=== PATIENT | male | born 1965 | race Hispanic/Latino ===

== ENCOUNTER 2020-07-03 13:59 | Inpatient (IN) | payer MEDICARE ==
[~2020-07-03] VITALS: Ht 180.3 cm; Wt 82.3 kg
[2020-07-03] MEDS ORDERED: SODIUM CHLORIDE 0.9% 1000ML 1,000 ML IV STA (14:25)
[2020-07-03] MEDS ORDERED: PANTOPRAZOLE 40 MG 10ML VIAL IV ONE (14:25)
[2020-07-03] MEDS ORDERED: ONDANSETRON HCL INJ 2MG/ML 2ML 2 MG/ML VIAL IV ONE (14:25)
[2020-07-03 14:47] LABS: BASOPHILS % 0.3 % (0.0-1.0); EOSINOPHILS # (AUTO) 0.2 (0.0-0.4); EOSINOPHILS % 1.3 % (0.0-6.0); HEMATOCRIT 65.9 % (38.2-49.6); HEMOGLOBIN 20.3 g/dL (14.0-18.0); LYMPHOCYTES # (AUTO) 2.2 (1.0-3.2); LYMPHOCYTES % 16.7 % (18.0-39.1); MEAN CORPUSCULAR HEMOGLOBIN 31.7 pg (28-32); MEAN CORPUSCULAR HGB CONC 30.8 g/dL (31-35); MONOCYTES # (AUTO) 0.9 (0.2-0.8); MONOCYTES % 6.8 % (4.4-11.3); NEUTROPHILS # (AUTO) 9.7 (2.1-6.9); NEUTROPHILS % 74.6 % (38.7-80.0); PLATELET COUNT 86 x10e3/uL (140-360); RED CELL DISTRIBUTION WIDTH 12.5 % (11.7-14.4)
[2020-07-03 14:51] LABS: INR 1.05; PROTHROMBIN TIME 14.2 seconds (11.9-14.5)
[2020-07-03 14:52] LABS: PARTIAL THROMBOPLASTIN TIME 36.3 seconds (23.8-35.5)
[2020-07-03 15:02] LABS: ALANINE AMINOTRANSFERASE 37 IU/L (0-55); ALBUMIN 4.3 g/dL (3.5-5.0); ALBUMIN/GLOBULIN RATIO 1.1 (0.8-2.0); ALKALINE PHOSPHATASE 111 IU/L (40-150); ANION GAP 24.1 mmol/L (8-16); BLOOD UREA NITROGEN 54 mg/dL (7-26); BUN/CREATININE RATIO 21 (6-25); CALCIUM 9.2 mg/dL (8.4-10.2); CARBON DIOXIDE 17 mmol/L (22-29); CHLORIDE 147 mmol/L (98-107); CREATINE KINASE 2266 IU/L (30-200); CREATININE, SERUM 2.63 mg/dL (0.72-1.25); EST GLOMERULAR FILTRATION RATE 26 ML/MIN (60-); GLUCOSE 111 mg/dL (74-118); MAGNESIUM 3.3 MG/DL (1.3-2.1); POTASSIUM 3.1 mmol/L (3.5-5.1)
[2020-07-03 15:09] LABS: SODIUM 185 mmol/L (136-145)
--- NOTE | 2020-07-03 15:30 | Diagnostic Imaging Report ---
EXAMINATION: ABDOMEN ACUTE SERIES W/PA CXR INDICATION: CONSTIPATION COMPARISON: None FINDINGS: TUBES and LINES: None. LUNGS: Lungs are well inflated. There is no evidence of pneumonia or pulmonary edema. PLEURA: No pleural effusion or pneumothorax. HEART AND MEDIASTINUM: The cardiomediastinal silhouette is unremarkable. BONES AND SOFT TISSUES: No acute osseous lesion. Soft tissues are unremarkable. KUB: Nonobstructive bowel gas pattern. No evidence of free intraperitoneal air. No significant stool burden. Vascular calcifications in the pelvis. IMPRESSION: No acute thoracic abnormality. Nonobstructive bowel gas pattern. No significant stool burden. Signed by: Dr. Jenny Rogers MD on 07/03/2020 3:26 PM
--- NOTE | 2020-07-03 15:55 | Diagnostic Imaging Report ---
EXAMINATION: Head CT HISTORY: 54-year-old male with dizziness, slurred speech for last 3 days COMPARISON: None. TECHNIQUE: Helical axial images of the head were obtained. Reformatted coronal and sagittal images from the axial data. Dose modulation, iterative reconstruction, and/or weight based adjustment of the mA/kV was utilized to reduce the radiation dose to as low as reasonably achievable. FINDINGS: Parenchyma: 1. 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 Also small chronic lacunar infarct in the right hip of the caudate nucleus. 2. No mass or hemorrhage. No CT evidence of acute territorial vascular insult. Extra-axial spaces:No abnormal density. No extra-axial fluid collections Brain volume: Normal for age. Ventricles: No hydrocephalus or displacement. Arteries: No density suggestive of thrombus. Dural sinuses: No abnormal density. Foramen magnum: No mass, Chiari malformation, or basilar invagination. Sella: No obvious mass. Paranasal/mastoid sinuses: Imaged portions unremarkable. Skull/Scalp: Status post right pterional craniotomy and surgical and aneurysm clip in the expected location of the anterior communicated artery. IMPRESSION: 1. No acute intracranial hemorrhage or cortical infarcts. 2. Right pterional craniotomy and surgical aneurysm clip in the expected location of the anterior communicating artery. 3. Extensive right frontal temporal/insular encephalomalacia as above. Signed by: Dr. Kaylee Martines M.D. on 07/03/2020 3:52 PM
[2020-07-03 16:05] LABS: CALCIUM 8.6 mg/dL (8.4-10.2); CREATININE, SERUM 2.54 mg/dL (0.72-1.25)
[2020-07-03] MEDS ORDERED: ONDANSETRON HCL INJ 2MG/ML 2ML 2 MG/ML VIAL IV PRN ×2 (16:30→17:30)
[2020-07-03] MEDS ORDERED: DEXTROSE 5% 500ML 500 ML IV ONE (16:30)
--- OUTSIDE RECORDS SUMMARY | 2020-07-03 16:35 | XMS REPORT | Continuity of Care Document ---
Author Author [facility] t Organization [facility] Address [address] [place] [address] [address]. [address] [place] [address] Phone Unavailable Care Team Providers Care Service Delivery Supervisor Name Role Phone Micky MAHMOOD Attphys Unavailable Problems This patient has no known problems. Allergies, Adverse Reactions, Alerts This patient has no known allergies or adverse reactions. Medications This patient has no known medications. Procedures This patient has no known procedures. Results Test Description Test Time Test Comments Results Result Comments Source CT BRAIN WO 2020-07-03 15:48:00 [facility] 1965 Sex: M [facility] [address] [place], [place] [address] Patient Name: TRISH VALLE MR #: [id number] : 1965 Age/Sex: 54/M Req #: [id number] [facility] Physician: Ordered by: DELMIS MAHMOOD MD Report #: [id number] Location: ER Room/Bed: Procedure: [id number] CT/CT BRAIN WO Exam Date: 07/03/20 Exam Time: 1455 REPORT STATUS: Signed EXAMINATION: Head CT HISTORY: 54-year-old male with dizziness, slurred speech for last 3 days COMPARISON: None. TECHNIQUE: Helical axial images of the head were obtained. Reformatted coronal and sagittal images from the axial data. Dose modulation, iterative reconstruction, and/or weight based adjustment of the mA/kV was utilized to reduce the radiation dose to as low as reasonably achievable. FINDINGS: Parenchyma: 1. 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 Also small chronic lacunar infarct in the right hip of the caudate nucleus. 2. No mass or hemorrhage. No CT evidence of acute territorial vascular insult. Extra-axial spaces:No abnormal density. No extra-axial fluid collections Brain volume: Normal for age. Ventricles: No hydrocephalus or displacement. Arteries: No density suggestive of thrombus. Dural sinuses: No abnormal density. Foramen magnum: No mass, Chiari malformation, or basilar invagination. Sella: No obvious mass. Paranasal/mastoid sinuses: Imaged portions unremarkable. Skull/Scalp: Status post right pterional craniotomy and surgical and aneurysm clip in the expected location of the anterior communicated artery. IMPRESSION: 1. No acute intracranial hemorrhage or cortical infarcts. 2. Right pterional craniotomy and surgical aneurysm clip in the expected location of the anterior communicating artery. 3. Extensive right frontal temporal/insular encephalomalacia as above. Signed by: Dr. Gilbert Martines M.D. on 07/03/2020 3:52 PM Dictated By: GILBERT MARTINES MD 51 Transcribed By: LONI on 07/03/201551 COPY TO: DELMIS MAHMOOD MD ABDOMEN ACUTE SERIES W/PA CXR 2020-07-03 15:23:00 [facility] 1965 Sex: M [facility] [address] [place] [address] Patient Name: TRISH VALLE MR #: [id number] : 1965 Age/Sex: 54/M Req #: [id number] Adm Physician: Ordered by: DELMIS MAHMOOD MD Report #: [id number] Location: ER Room/Bed: Procedure: [id number] DX/ABDOMEN ACUTE SERIES W/PA CXR Exam Date: 07/03/20 Exam Time: 1455 REPORT STATUS: Signed EXAMINATION: ABDOMEN ACUTE SERIES W/PA CXR INDICATION: CONSTIPATION COMPARISON: None FINDINGS: TUBES and LINES: None. LUNGS: Lungs are well inflated. There is no evidence of pneumonia or pulmonary edema. PLEURA: No pleural effusion or pneumothorax. HEART AND MEDIASTINUM: The cardiomediastinal silhouette is unremarkable. BONES AND SOFT TISSUES: No acute osseous lesion. Soft tissues are unremarkable. KUB: Nonobstructive bowel gas pattern. No evidence of free intraperitoneal air. No significant stool burden. Vascular calcifications in the pelvis. IMPRESSION: No acute thoracic abnormality. Nonobstructive bowel gas pattern. No significant stool burden. Signed by: Dr. Patience Patel MD on 07/03/2020 3:26 PM Dictated By: PATIENCE PATEL MD [id number] Transcribed By: LONI on 07/03/20 152 COPY TO: DELMIS MAHMOOD MD
--- NOTE | 2020-07-03 16:59 | NUR ---
DR. Jimmy GALVEZ IN TO SEE THE PATIENT. PT. ADAMANTLY REFUSING TO GIVE A URINE. REFUSES TO BE STRAIGHT-CATH.
--- NOTE | 2020-07-03 17:22 | Emergency Department Note ---
History of Present Illnes History of Present Illness Chief Complaint: Abdominal Complaints History of Present Illness This is a 54 year old male 1 TO 2 WEEKS DIZZINESS. DIFFICULTY HAVING BOWEL MOVEMENTS. STATES HE FEELS LIKE HE IS POOPING WALNUTS OR PECANS. SONS STATES HE IS TAKING PEPTO AND CORRECTAL X 3 DAYS AND IT HAS NOT BEEN EFFECTIVE. DENIES ANY N/V. SON ALSO STATES HE NOTICED SLURRED SPEECH X 3 DAYS AND FEELS LIK E, "SOMETHING IS OFF". 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 Any updates have been documented here. Past Medical History Recent Fever: No Clinical Suspicion of Infectio: No New/Unexplained Change in Ment: No Past Medical History: Depression Other Medical History: BRAIN ANEURYSM SHORT TERM MEMORY LOSS Past Surgical History: Appendectomy Other Surgery: BRAIN ANURYSM Social History Smoking Cessation: Never Smoker Counseling Performed: No Alcohol Use: None Any Illegal Drug Use: No TB Exposure/Symptoms: No Physically hurt or threatened: No Family History Family history of heart diseas: No Other Any Pre-Existing Lines (PICC,: No Review of Systems Review of Systems Constitutional: Reports as per HPI, Reports malaise EENTM: Reports no symptoms Cardiovascular: Reports no symptoms Respiratory: Reports no symptoms Gastrointestinal: Reports as per HPI, Reports constipation Genitourinary: Reports no symptoms Musculoskeletal: Reports no symptoms Integumentary: Reports no symptoms Neurological: Reports as per HPI, Reports other (DIZZINESS) Psychological: Reports no symptoms Endocrine: Reports no symptoms Hematological/Lymphatic: Reports no symptoms Physical Exam Related Data Allergies: Coded Allergies: No Known Allergies (Unverified , 07/03/20) Triage Vital Signs Vital Signs Date Time Temp Pulse Resp B/P (MAP) Pulse Ox O2 Delivery O2 Flow Rate FiO2 07/03/20 14:10 98.5 119 18 135/89 98 Room Air Vital signs reviewed: Yes Physical Exam CONSTITUTIONAL Constitutional: Present well-developed, Present well-nourished HENT HENT: Present normocephalic, Present atraumatic, Present mucosae dry, Present nose normal HENT L/R: Present left ext ear normal, Present right ext ear normal EYES Eyes: Reports PERRL, Reports conjunctivae normal NECK Neck: Present ROM normal PULMONARY Pulmonary: Present effort normal, Present breath sounds normal CARDIOVASCULAR Cardiovascular: Present regular rhythm, Present heart sounds normal, Present capillary refill normal, Present tachycardia GASTROINTESTINAL Abdominal: Present soft, Present nontender, Present bowel sounds normal GENITOURINARY Genitourinary: Present exam deferred SKIN Skin: Present warm, Present dry MUSCULOSKELETAL Musculoskeletal: Present ROM normal NEUROLOGICAL Neurological: Present alert, Present oriented x 3, Present no gross motor or sensory deficits PSYCHOLOGICAL Psychological: Present mood/affect normal, Present judgement normal Results Laboratory Result Diagram: 07/03/20 1420 07/03/20 1504 Laboratory Laboratory Tests Test 07/03/20 16:41 07/03/20 15:04 07/03/20 14:20 Sodium Level 185 mmol/L (136-145) 185 mmol/L (136-145) Potassium Level 3.0 mmol/L (3.5-5.1) 3.1 mmol/L (3.5-5.1) Chloride Level 148 mmol/L (98-107) 147 mmol/L (98-107) Carbon Dioxide Level 17 mmol/L (22-29) 17 mmol/L (22-29) Anion Gap 23.0 mmol/L (8-16) 24.1 mmol/L (8-16) Blood Urea Nitrogen 51 mg/dL (7-26) 54 mg/dL (7-26) Creatinine 2.54 mg/dL (0.72-1.25) 2.63 mg/dL (0.72-1.25) Estimat Glomerular Filtration Rate 27 ML/MIN (60-) 26 ML/MIN (60-) BUN/Creatinine Ratio 20 (6-25) 21 (6-25) Glucose Level 101 mg/dL (74-118) 111 mg/dL (74-118) Calcium Level 8.6 mg/dL (8.4-10.2) 9.2 mg/dL (8.4-10.2) White Blood Count 12.96 x10e3/uL (4.8-10.8) Red Blood Count 6.40 x10e6/uL (4.3-5.7) Hemoglobin 20.3 g/dL (14.0-18.0) Hematocrit 65.9 % (38.2-49.6) Mean Corpuscular Volume 103.0 fL (81-99) Mean Corpuscular Hemoglobin 31.7 pg (28-32) Mean Corpuscular Hemoglobin Concent 30.8 g/dL (31-35) Red Cell Distribution Width 12.5 % (11.7-14.4) Platelet Count 86 x10e3/uL (140-360) Neutrophils (%) (Auto) 74.6 % (38.7-80.0) Lymphocytes (%) (Auto) 16.7 % (18.0-39.1) Monocytes (%) (Auto) 6.8 % (4.4-11.3) Eosinophils (%) (Auto) 1.3 % (0.0-6.0) Basophils (%) (Auto) 0.3 % (0.0-1.0) Neutrophils # (Auto) 9.7 (2.1-6.9) Lymphocytes # (Auto) 2.2 (1.0-3.2) Monocytes # (Auto) 0.9 (0.2-0.8) Eosinophils # (Auto) 0.2 (0.0-0.4) Basophils # (Auto) 0.0 (0.0-0.1) Absolute Immature Granulocyte (auto 0.04 x10e3/uL (0-0.1) Prothrombin Time 14.2 seconds (11.9-14.5) Prothromb Time International Ratio 1.05 Activated Partial Thromboplast Time 36.3 seconds (23.8-35.5) Magnesium Level 3.3 MG/DL (1.3-2.1) Total Bilirubin 0.6 mg/dL (0.2-1.2) Aspartate Amino Transf (AST/SGOT) 51 IU/L (5-34) Alanine Aminotransferase (ALT/SGPT) 37 IU/L (0-55) Alkaline Phosphatase 111 IU/L (40-150) Creatine Kinase 2266 IU/L (30-200) B-Type Natriuretic Peptide 11.1 pg/mL (0-100) Total Protein 8.2 g/dL (6.5-8.1) Albumin 4.3 g/dL (3.5-5.0) Globulin 3.9 g/dL (2.3-3.5) Albumin/Globulin Ratio 1.1 (0.8-2.0) Lab results reviewed: Yes Imaging Imaging results reviewed: Yes Impressions EXAMINATION: Head CT HISTORY: 54-year-old male with dizziness, slurred speech for last 3 days COMPARISON: None. TECHNIQUE: Helical axial images of the head were obtained. Reformatted coronal and sagittal images from the axial data. Dose modulation, iterative reconstruction, and/or weight based adjustment of the mA/kV was utilized to reduce the radiation dose to as low as reasonably achievable. FINDINGS: Parenchyma: 1. 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 Also small chronic lacunar infarct in the right hip of the caudate nucleus. 2. No mass or hemorrhage. No CT evidence of acute territorial vascular insult. Extra-axial spaces:No abnormal density. No extra-axial fluid collections Brain volume: Normal for age. Ventricles: No hydrocephalus or displacement. Arteries: No density suggestive of thrombus. Dural sinuses: No abnormal density. Foramen magnum: No mass, Chiari malformation, or basilar invagination. Sella: No obvious mass. Paranasal/mastoid sinuses: Imaged portions unremarkable. Skull/Scalp: Status post right pterional craniotomy and surgical and aneurysm clip in the expected location of the anterior communicated artery. IMPRESSION: 1. No acute intracranial hemorrhage or cortical infarcts. 2. Right pterional craniotomy and surgical aneurysm clip in the expected location of the anterior communicating artery. 3. Extensive right frontal temporal/insular encephalomalacia as above. Signed by: Dr. Kaylee Martines M.D. on 07/03/2020 3:52 PM Procedures 12 Lead ECG Interpretation ECG Interpretation : ECG: ECG 1 Call Or Contact Centre Operator: Interpreted by ED physician Date: Jul 03, 2020 Time: 14:33 Rhythm: sinus tachycardia Rate: tachycardia BPM: 114 QRS axis: normal ST segment flattening: V3, V4, V5, V6 T waves normal: Yes Clinical Impression: abnormal ECG Critical Care Time Total Critical Care Time (min): 45 Critcal care necessary due to: dehydration, other (SEVERE HYPERNATREMIA = 185) Critcal care time spent by me: discussion w consultants, discussion w primary provider, examination of patient, order/review laboratory studies, re-evaluation of patient condition Assessment & Plan Medical Decision Making MDM VAGUE COMPLAINTS - CHECK CBC, CHEM, CARDIACS, ECG, CT BRAIN (H/O ANEURYSMAL BLEED). APPEARS DEHYDRATED - R/O RENAL INSUFF, RHABDOMYOLYSIS, CEREBRAL BLEED, STEMI/NSTEMI, ELECTROLYTE ABNL Reassessment Reassessment SEVERE DEHYDRATION WITH SEVERE HYPERNATREMIA, RHABDOMYOLYSIS - ADMIT TO ICU. I SPOKE WITH DR CORTES, DR IGNACIO WHO WANTS D5W @ 200CC/HR, AND DR Raven GALVEZ FOR ICU Assessment & Plan Final Impression: (1) Dehydration with hypernatremia (2) Rhabdomyolysis (3) Renal insufficiency Depart Disposition: ADMITTED Last Vital Signs Date Time Temp Pulse Resp B/P (MAP) Pulse Ox O2 Delivery O2 Flow Rate FiO2 07/03/20 17:07 89 10 129/98 97 Room Air 07/03/20 16:23 98.6 Medications in the ED Pantoprazole Sodium 40 mg ONCE ONCE IV Last administered on 07/03/20at 15:50; Admin Dose 40 MG; Start 07/03/20 at 14:25; Stop 07/03/20 at 14:30; Status DC Ondansetron HCl 4 mg ONCE ONCE IV Last administered on 07/03/20at 15:50; Admin Dose 4 MG; Start 07/03/20 at 14:25; Stop 07/03/20 at 14:30; Status DC Sodium Chloride 1,000 ml @ 0 mls/hr Q0M STAT IV Last administered on 07/03/20at 14:28; Admin Dose 1,000 MLS/HR; Start 07/03/20 at 14:25; Stop 07/03/20 at 14:28; Status DC Dextrose 500 ml @ 500 mls/hr Q1H ONCE IV Last administered on 07/03/20at 16:40; Admin Dose 500 MLS/HR; Start 07/03/20 at 16:30; Stop 07/03/20 at 17:29 Dextrose 1,000 ml @ 200 mls/hr Q5H IV ; Start 07/03/20 at 16:30; Stop 08/02/20 at 16:29 Ondansetron HCl 4 mg Q4H PRN IV NAUSEA AND VOMITING; Start 07/03/20 at 16:30; Stop 08/02/20 at 16:29 DELMIS MAHMOOD MD Jul 03, 2020 17:22
[2020-07-03] MEDS: DEXTROSE 5% 1,000 ML IV SCH ×2 (17:43→21:08)
--- NOTE | 2020-07-03 17:49 | Consultation ---
DATE OF CONSULTATION: Pulmonary Critical Care Consultation CHIEF COMPLAINT: Weakness and dizziness. HISTORY OF PRESENT ILLNESS: The patient is a 54-year-old man. Ten years ago, he had an aneurysm and required brain surgery. He states that since that time, he has had some problems with his sodium. He also had a prior history of diabetes, but no longer takes metformin. He came to the emergency department complaining of some increased dizziness and weakness. He denies any nausea or vomiting. He is not having chest pain or dyspnea. He denies fevers. PAST SURGICAL HISTORY: 1. Status post brain surgery for a ruptured aneurysm. 2. Status post appendectomy. ALLERGIES: NO KNOWN DRUG ALLERGIES. SOCIAL HISTORY: The patient does smoke. He is not a drinker. REVIEW OF SYSTEMS: He has no fever. He has no headache. He is not having any neck pain. He has no chest pain. He is not having any difficulty breathing. He has no abdominal pain. He has no nausea or vomiting. He has no leg edema. PHYSICAL EXAMINATION: VITAL SIGNS: The patient's blood pressure is 129/98, saturation is 97% on room air, and the pulse is 89. HEENT: No facial swelling or erythema. LYMPHATIC: No submandibular, cervical, or supraclavicular adenopathy. CARDIAC: Regular rate and rhythm with normal S1, S2. LUNGS: Auscultation of lungs reveals rhonchorous breath sounds bilaterally. There is no wheezing. ABDOMEN: Soft, nontender. There is no rebound or guarding. EXTREMITIES: No leg edema or calf tenderness. There is no cyanosis or clubbing. SKIN: No rashes. NEUROLOGICAL: No focal abnormalities. LABORATORY DATA: Sodium is 185 and the potassium is 3. The BUN to creatinine is 51 to 2.54. The carbon dioxide is 17 and the chloride is 148. The potassium is 3. White blood cell count is 12.96 and hemoglobin is 20.3. The platelet count is 86. RADIOGRAPHIC DATA: CT scan of the head shows changes from prior surgery with an aneurysm clip. There is extensive right frontal temporal encephalomalacia. IMPRESSION: 1. Hypernatremia with hypovolemia, present on admission. 2. Acute renal failure. 3. Polycythemia. 4. Thrombocytopenia. 5. History of a prior brain aneurysm. PLAN: 1. The patient will receive some intravenous volume as well as intravenous free water with careful monitoring of the sodium. The goal will be to correct the sodium by no more than 10-12 mEq over the next 24 hours in order to avoid any cerebral edema. 2. Continue to monitor renal function. 3. Renal ultrasound. 4. Chest x-ray. 5. Monitor platelet counts. 6. Urinalysis. MD ERNA Joseph/LUCY /[id number]
[2020-07-03 19:00] VITALS: BP 126/90
[2020-07-03 20:00] VITALS: BP 127/83
[2020-07-03 20:09] LABS: ANION GAP 14.6 mmol/L (8-16); CALCIUM 7.9 mg/dL (8.4-10.2); CREATININE, SERUM 2.31 mg/dL (0.72-1.25)
[2020-07-03 20:11] LABS: POTASSIUM 2.6 mmol/L (3.5-5.1)
[2020-07-03] MEDS ORDERED: POTASSIUM CHLORIDE 20 MEQ TAB CR PO STA (20:17)
[2020-07-03] MEDS ORDERED: POTASSIUM CHLORIDE 20MEQ/100ML 200 ML IV ONE (20:30)
[2020-07-03 21:00] VITALS: BP 119/86
[2020-07-03] MEDS: POTASSIUM CHLORIDE 20MEQ/100ML 100 ML IV SCH ×2 (21:23→23:53)
[2020-07-03 22:00] VITALS: BP 123/85
--- NOTE | 2020-07-03 22:00 | NUR ---
MD Jersey Loja at bedside to assess pt. notified of multiple bradycardic events with pauses. Pt in sinus arrhythmia on monitor. Orders received to continue to monitor.
[2020-07-03] MEDS ORDERED: DESMOPRESSIN ACETATE 5 ML SPRAY NS SCH (22:44)
[2020-07-03 23:00] VITALS: BP 126/85
[2020-07-04] VITALS (21 sets, daily range): BP systolic 110–173; BP diastolic 71–99
[2020-07-04 00:24] LABS: ANION GAP 11.9 mmol/L (8-16); CALCIUM 7.9 mg/dL (8.4-10.2); CREATININE, SERUM 2.18 mg/dL (0.72-1.25)
[2020-07-04 00:28] LABS: POTASSIUM 2.9 mmol/L (3.5-5.1)
[2020-07-04 04:43] LABS: BASOPHILS % 0.3 % (0.0-1.0); EOSINOPHILS # (AUTO) 0.4 (0.0-0.4); EOSINOPHILS % 4.3 % (0.0-6.0); HEMATOCRIT 54.1 % (38.2-49.6); HEMOGLOBIN 16.1 g/dL (14.0-18.0); LYMPHOCYTES # (AUTO) 2.2 (1.0-3.2); LYMPHOCYTES % 24.3 % (18.0-39.1); MEAN CORPUSCULAR HEMOGLOBIN 31.3 pg (28-32); MEAN CORPUSCULAR HGB CONC 29.8 g/dL (31-35); MEAN CORPUSCULAR VOLUME 105.3 fL (81-99); MONOCYTES # (AUTO) 0.6 (0.2-0.8); MONOCYTES % 6.9 % (4.4-11.3); NEUTROPHILS # (AUTO) 5.8 (2.1-6.9); NEUTROPHILS % 63.9 % (38.7-80.0); PLATELET COUNT 54 x10e3/uL (140-360); RED BLOOD COUNT 5.14 x10e6/uL (4.3-5.7); RED CELL DISTRIBUTION WIDTH 12.4 % (11.7-14.4)
[2020-07-04] MEDS: DEXTROSE 5% 1,000 ML IV SCH ×2 (04:52→15:59)
[2020-07-04 05:04] LABS: CALCIUM 7.5 mg/dL (8.4-10.2); CREATININE, SERUM 2.1 mg/dL (0.72-1.25)
[2020-07-04 05:12] LABS: CREATINE KINASE MB 4.6 ng/mL (0-5.0)
[2020-07-04] MEDS ORDERED: POTASSIUM CHLORIDE 20 MEQ TAB CR PO STA (05:24)
[2020-07-04] MEDS ORDERED: POTASSIUM CHLORIDE 20MEQ/100ML 200 ML IV ONE (05:30)
[2020-07-04] MEDS: SODIUM CHLORIDE 0.45% 1,000 ML IV SCH ×2 (05:55→15:12)
[2020-07-04] MEDS: POTASSIUM CHLORIDE 20MEQ/100ML 100 ML IV SCH ×2 (05:55→08:18)
[2020-07-04 06:43] LABS: CLARITY,URINE CLEAR (CLEAR); COLOR,URINE YELLOW (YELLOW)
[2020-07-04 06:44] LABS: KETONES,URINE NEGATIVE (NEGATIVE); LEUKOCYTE ESTERASE ,URINE NEGATIVE (NEGATIVE); NITRITE,URINE NEGATIVE (NEGATIVE); PROTEIN,URINE DIPSTICK 2+ (NEGATIVE); URINE UROBILINOGEN 0.2 mg/dL (0.2 - 1)
[2020-07-04 06:45] LABS: BILIRUBIN,URINE SMALL (NEGATIVE)
[2020-07-04 07:18] LABS: BACTERIA,URINE RARE /HPF; EPITHELIAL CELLS,URINE FEW /LPF
[2020-07-04] MEDS: FAMOTIDINE 20 MG/2 ML VIAL IV SCH ×2 (08:09→15:59)
[2020-07-04 08:55] LABS: HYPOCHROMASIA SLIGHT
[2020-07-04 08:56] LABS: PLATELET ESTIMATE MARKEDLY DECREASED; PLATELET MORPHOLOGY COMMENT NORMAL
[2020-07-04 10:38] LABS: CREATINE KINASE MB 4.4 ng/mL (0-5.0)
--- NOTE | 2020-07-04 10:46 | Progress Note ---
DATE: SUBJECTIVE: The patient has no new complaints. He is asking for Nicoderm patch. His sodium is improved to 168. PHYSICAL EXAMINATION: VITAL SIGNS: Blood pressure is 120/89 and saturation is 100%. HEENT: Shows no facial swelling or erythema. LYMPHATIC: Shows no submandibular, cervical, or supraclavicular adenopathy. CARDIAC: Reveals a regular rate and rhythm with normal S1 and S2. LUNGS: Auscultation of lungs reveals clear breath sounds bilaterally. There is no wheezing. ABDOMEN: Soft and nontender. There is no rebound or guarding. EXTREMITIES: Show no leg edema or calf tenderness. There is no cyanosis or clubbing. LABORATORY DATA: The sodium is 168. Potassium is 3 and the BUN to creatinine ratio is 40 to 2.1. Other electrolytes are within normal limits. White blood cell count is 9.07, hemoglobin is 15.1, and the platelet count is 54. IMPRESSION: 1. Hypernatremia with hypovolemia, present on admission. 2. Possible syndrome of inappropriate antidiuretic hormone release. 3. Acute renal failure. 4. Thrombocytopenia. 5. Polycythemia. 6. History of brain aneurysm. PLAN: 1. Continue to give free water slowly to correct sodium. 2. Continue to give volume and monitor renal function. 3. Await renal ultrasound. 4. Continue to monitor platelet counts. 5. Transfer to floor. 6. Cardiology evaluation. Mick Barragan MD [facility]/MODL /[id number]
[2020-07-04 10:52] LABS: ANION GAP 13.8 mmol/L (8-16); CALCIUM 7.7 mg/dL (8.4-10.2); CREATININE, SERUM 1.91 mg/dL (0.72-1.25); POTASSIUM 3.8 mmol/L (3.5-5.1)
[2020-07-04] MEDS: NICOTINE 21 MG/EA PATCH TOP SCH (11:00)
--- NOTE | 2020-07-04 13:17 | Consultation ---
DATE OF CONSULTATION: Renal Consultation Thank you, Dr. Loja, for the consultation. HISTORY OF PRESENT ILLNESS: Mr. Flores is a pleasant 54-year-old male with no known past medical history except a history of a brain aneurysm surgery, came into the emergency room apparently with what appears to be dehydration. The patient apparently was sitting at home, says had not been drinking or eating much. On blood work, it was found to have sodium of 185, potassium 3.1, BUN 54, creatinine 2.6. Renal consultation has been asked for in the management of his hypernatremia, not clear at this time whether or not the patient has diabetes insipidus. The patient's urine osmolalities still pending. Vasopressin level still pending. The patient has also refused Signh catheter and is difficult to monitor his urine output. However, he does not appear to be polyuric at this time. Currently, no fever, no chills, no nausea, no vomiting, no diarrhea, no abdominal pain. No other specific symptoms. No dysuria, frequency, or urgency of urination. PAST MEDICAL HISTORY: None on record. MEDICATIONS: On admission; none on record. ALLERGIES: NO KNOWN DRUG ALLERGIES. SOCIAL HISTORY: History of smoking. No history of alcohol use. FAMILY HISTORY: Noncontributory. REVIEW OF SYSTEMS: See HPI. Otherwise, all systems negative. PHYSICAL EXAMINATION: VITAL SIGNS: Blood pressure is 120/89, pulse 75, afebrile. HEENT: No cervical lymphadenopathy. NECK: Supple without masses. No obvious JVD. Moist appearing mucosa. SKIN: Dry with poor skin turgor. CHEST WALL: Good expansion. No chest wall tenderness. LUNGS: Clear to auscultation bilaterally. CARDIOVASCULAR: S1, S2. No obvious gallop, rub, or murmur. ABDOMEN: Soft. Positive bowel sounds. Nontender. No organomegaly. EXTREMITIES: No evidence of lower extremity edema. No clubbing. No cyanosis. NEUROLOGIC: Awake, alert, and oriented x3. Grossly nonfocal exam. LABORATORY WORKUP: On presentation; sodium was 185, potassium 3.1, chloride 147, bicarb of 17, BUN of 54, creatinine 2.6, calcium 9.2, magnesium was 3.3. CPK was 2266 , was 1993 earlier. Overnight, sodium has been corrected appropriately, sodium rate of correction has been 0.5 mg/L per hour. Sodium this afternoon or this morning is 172, potassium 3.8, chloride 142, CO2 20, BUN 38, and creatinine is 1.9. Urine osmolality is still pending. Serum osmolality is still pending. Urine sodium is still pending. Vasopressin level has also been ordered and still pending. IMPRESSION AND PLAN: 1. Acute kidney injury on possibly chronic kidney disease, not clear whether or not the patient has chronic kidney disease, however, acute kidney injury is likely from volume depletion. The patient will benefit from continuing with aggressive IV fluid hydration with hypotonic fluids. We will continue half normal saline at present. We will recheck another sodium level is about 2 to 3 hours if this sodium is staying around 172. We will change the fluid back to D5 water and run at 100 to 150 mL/h. The rate of correction the first 24 hours should be about 10 to 12, which has been appropriately corrected at present time. a. For now, we will check a renal ultrasound to see whether or not has chronic kidney disease. Also, check for hydronephrosis, check urine electrolytes. We will also check repeat labs in the morning and basic metabolic panel, Mag, phos, CBC, urine electrolytes. We will also check every 4 hours basic metabolic panel, for the hypernatremia. b. Avoid potential nephrotoxic agents, avoid DELBERT inhibitors, ARBs, nonsteroidal anti-inflammatory drugs and IV dye. 2. Hypernatremia, likely secondary to dehydration and volume deficit, particularly free water deficit. The patient was given a bolus of D5 water at 500 mL x1 in the ER and then placed on D5 water initially at 200 mL/h, rate was decreased to 150 mL/h and now switched to half NS at 150 mL/h, to allow for the rate of correction not to exceed around 12 mEq/L/h in the first 24 hours. a. We will recheck labs again this afternoon. Continue checking every 4 hours basic metabolic panel levels and make further recommendations. We will also order a stat urine osmolality, serum osmolality, urine sodium, and a vasopressin level to check whether or not the patient may have diabetes insipidus, although based on present evidence, it would seem the patient has more volume depletion from free water deficit rather than diabetes insipidus. Also, we will continue monitor strict I's and O's, and also await the results of the vasopressin level, urine osmolalities, serum osmolalities, and make further recommendations. 3. Hypertension. Blood pressure is currently controlled, off medications. 4. Hypokalemia, has been replaced. Repeat potassium is normal. 5. Mild degree of rhabdomyolysis. Continue with IV fluid hydration. Thank you once again for the consultation. We will follow the patient closely along with you and make further recommendations. Vimal Alvarez MD TH/MODL /[id number] cc: Jersey Loja MD
--- NOTE | 2020-07-04 14:17 | Consultation ---
DATE OF CONSULTATION: Cardiology Consultation. REASON FOR CONSULTATION: Bradycardia. CONSULTING PHYSICIAN: Dr. Jersey Loja HISTORY OF PRESENT ILLNESS: Mr. Flores is a 54-year-old male with a pertinent past medical history of brain aneurysm with surgery in the past, stroke, myocardial infarction, and also hypertension, who tells me that he came into the ER because of not having seen a doctor for a long time and he felt like it is about time he gets evaluated. During this assessment, he denies any chest pain, shortness of breath, dizziness, palpitations, orthopnea, PND and edema, leg pain, abdominal pain, dysuria. He does endorse some weakness. PAST SURGICAL HISTORY: Brain surgery for ruptured aneurysm. PAST SURGICAL HISTORY: Appendectomy. SOCIAL HISTORY: He is disabled. Does not work. Denies smoking or alcohol intake or illicit drug use. REVIEW OF SYSTEMS: Negative except as mentioned above. PHYSICAL EXAMINATION: VITAL SIGNS: Temperature 98, pulse 84, respiratory rate 22, blood pressure 126/89, oxygen saturation 100% on room air. GENERAL: Alert and oriented x3, resting in the bed, in no acute distress at the moment. NECK: Supple, no JVD noted. CARDIOVASCULAR: Irregular rate and rhythm. Normal S1, S2. No murmurs, no gallops. ABDOMEN: Soft and nontender. LUNGS: Clear to auscultation throughout. No wheezing, no rhonchi or crackles. LOWER EXTREMITIES: No edema, 2+ pedal pulses. CARDIOVASCULAR MEDICATIONS: None at this time. LABORATORY DATA: WBC 9.07, hemoglobin 16.1, hematocrit 54.1, and platelets 54. Sodium 172, potassium 3.8, BUN 38, creatinine 1.91, creatine kinase 2370, CK-MB 4.40, troponin 0.028. CT of the brain with no acute intracranial hemorrhage or infarct, right pterional craniotomy and surgical aneurysm clip as expected. CT of abdomen with no thoracic abnormality noted. No obstructive bowel pattern noted. IMPRESSION: 1. Electrolyte imbalance secondary to dehydration. 2. Acute renal failure. 3. Thrombocytopenia. 4. History of brain aneurysm status post surgical repair. 5. Bradyarrhythmia. 6. Hypertension. RECOMMENDATIONS: Continue telemetry monitoring. Obtain thyroid function test. Continue IV hydration, given dehydration and electrolyte imbalance. Monitor renal function closely. Echocardiogram obtained. Recommendations will follow. Maintain on telemetry at all times. Thank you for this consultation. We will continue to monitor. Dictated by Meche Trujillo, MANAGER [employer] MD [place] Sheikh/LUCY /[id number]
[2020-07-04 15:13] LABS: ANION GAP 11.9 mmol/L (8-16); CALCIUM 7.6 mg/dL (8.4-10.2); CREATININE, SERUM 1.75 mg/dL (0.72-1.25); POTASSIUM 3.9 mmol/L (3.5-5.1)
--- NOTE | 2020-07-04 16:40 | NUR ---
Received patient from ICU. Patient oriented to room and call light. No s/s of distress. IV fluids infusing to left wrist. Call light in reach will continue to monitor.
--- NOTE | 2020-07-04 16:40 | NUR ---
report called. pt has all his belongings and understands he is being transferred. in report noted that dr louie wants to be called with bmp @ 2000 tonight and will have further orders after. alexa rincon verbalizes understanding of orders and recvd pt without any issues.
[2020-07-04] MEDS ORDERED: CALCIUM GLUCONATE 10% INJ 9.3 MEQ in SODIUM CHLORIDE 0.9% 100 ML 100 ML IV ONE (17:45)
[2020-07-04 18:02] LABS: BLOOD UREA NITROGEN 34 mg/dL (7-26); GLUCOSE 90 mg/dL (74-118); OSMOLALITY,SERUM 344 mOsm/kg (278-305)
[2020-07-04 18:08] LABS: SODIUM 171 mmol/L (136-145)
--- NOTE | 2020-07-04 19:20 | NUR ---
BEDSIDE SHIFT REPORT RECEIVED FROM DAY RN. PT FORGETFUL BUT COOPERATIVE. TELE #2 ON. 20 G PIV IN LEFT HAND. SITE HEALTHY. BED ALARM ON.CALL LIGHT WITHIN REACH. BED IN LOW POSITION.
[2020-07-04 20:38] LABS: ANION GAP 12.9 mmol/L (8-16); CALCIUM 7.6 mg/dL (8.4-10.2); CREATININE, SERUM 1.68 mg/dL (0.72-1.25); POTASSIUM 3.9 mmol/L (3.5-5.1)
--- NOTE | 2020-07-04 21:09 | NUR ---
DR IGNACIO NOTIFIED OF NA 170. Q4HR BLOOD DRAW D/C D5W RATE INCREASED TO 150/HR. PT LOOKING FOR HIS CHOCOLATE . PT SAID IF HE DECIDES TO GO HE WILL. PT RESTING IN BED WATCHING TV AT THIS TIME. IV RATE INCREASED TO 150ML/HR.
[2020-07-05] MEDS: DEXTROSE 5% 1,000 ML IV SCH ×5 (00:20→23:16)
[2020-07-05 05:34] VITALS: BP 122/79
[2020-07-05 06:29] LABS: BASOPHILS % 0.3 % (0.0-1.0); EOSINOPHILS # (AUTO) 0.3 (0.0-0.4); EOSINOPHILS % 4.3 % (0.0-6.0); HEMATOCRIT 47.1 % (38.2-49.6); HEMOGLOBIN 14.3 g/dL (14.0-18.0); LYMPHOCYTES # (AUTO) 1.8 (1.0-3.2); LYMPHOCYTES % 26.3 % (18.0-39.1); MEAN CORPUSCULAR HEMOGLOBIN 31.4 pg (28-32); MEAN CORPUSCULAR HGB CONC 30.4 g/dL (31-35); MEAN CORPUSCULAR VOLUME 103.3 fL (81-99); MONOCYTES # (AUTO) 0.4 (0.2-0.8); MONOCYTES % 5.5 % (4.4-11.3); NEUTROPHILS # (AUTO) 4.4 (2.1-6.9); NEUTROPHILS % 63.2 % (38.7-80.0); RED BLOOD COUNT 4.56 x10e6/uL (4.3-5.7); RED CELL DISTRIBUTION WIDTH 12.2 % (11.7-14.4)
[2020-07-05 06:47] LABS: PLATELET COUNT 46 x10e3/uL (140-360)
[2020-07-05 06:54] LABS: ALBUMIN 2.8 g/dL (3.5-5.0); ALBUMIN/GLOBULIN RATIO 1.1 (0.8-2.0); ANION GAP 11.6 mmol/L (8-16); CALCIUM 7.4 mg/dL (8.4-10.2); CREATININE, SERUM 1.45 mg/dL (0.72-1.25); MAGNESIUM 2.7 MG/DL (1.3-2.1); PHOSPHORUS 3.6 MG/DL (2.3-4.7); POTASSIUM 3.6 mmol/L (3.5-5.1)
--- NOTE | 2020-07-05 07:18 | NUR ---
Margarita called with critical platelets. Margarita to see patient soon. No new orders given. Other labs were drawn but labs pending.
--- NOTE | 2020-07-05 07:25 | NUR ---
aware of sodium 164. No new orders
[2020-07-05] MEDS: FAMOTIDINE 20 MG/2 ML VIAL IV SCH ×2 (07:54→17:44)
[2020-07-05] MEDS: NICOTINE 21 MG/EA PATCH TOP SCH (07:54)
[2020-07-05 08:10] VITALS: BP 124/84
[2020-07-05 08:12] VITALS: BP 124/84
--- NOTE | 2020-07-05 09:46 | Diagnostic Imaging Report ---
EXAM: Renal Ultrasound INDICATION: ^[id number] ^[id number] ^ACUTE RENAL FAILURE COMPARISON: None TECHNIQUE: Transverse and longitudinal images of the kidneys and bladder were obtained. FINDINGS: Right Kidney: Length: 10.7 cm Appearance: Normal echogenicity. Collecting system: No hydronephrosis Stones: None Cyst/Mass: None Left Kidney: Length: 10.5 cm Appearance: Normal echogenicity. Collecting system: No hydronephrosis Stones: None Cyst/Mass: None Bladder: Within normal limits. Bilateral ureteral jets are noted. Prostate is noted with a volume of 29 cc. IMPRESSION: Unremarkable renal ultrasound. Signed by: Brad Patel MD on 07/05/2020 9:42 AM
--- NOTE | 2020-07-05 11:30 | Progress Note ---
DATE: Cardiology Progress Note SUBJECTIVE: The patient feeling better. Denies any chest pain, shortness of breath or palpitations. OBJECTIVE: VITAL SIGNS: Temperature 97.9, heart rate 75, respirations are 20, blood pressure is 124/84, oxygen saturation 98% on room air. GENERAL: He is an unkempt male, in no apparent distress. CARDIOVASCULAR: Regular rate and rhythm. LUNGS: Clear to auscultation. ABDOMEN: Soft, nontender, nondistended. EXTREMITIES: No clubbing, cyanosis, or edema. LABORATORY DATA: Reviewed. Platelet count 46. Sodium 164, creatinine 1.45. Troponin negative. Creatine kinase has decreased to 2370. IMPRESSION: 1. Dehydration. 2. Hyponatremia. 3. Acute kidney injury. 4. Rhabdomyolysis. 5. Asymptomatic bradycardia. 6. Hypertension. 7. Thrombocytopenia. Telemetry monitoring shows episodes of sinus bradycardia. 8. Asymptomatic sinus bradycardia. RECOMMENDATIONS: Continue monitor on telemetry. Telemetry monitoring showed episodes of sinus bradycardia. The patient remains asymptomatic. Continue fluids for his rhabdomyolysis, dehydration and hypernatremia. We will defer this to Nephrology. No active cardiac condition is ongoing. We will continue to follow along with you. Nj Lopez DO BM/MODL /[id number] MTDD
[2020-07-05 12:24] VITALS: BP 110/89
[2020-07-05] MEDS ORDERED: SODIUM CHLORIDE 0.9% 250ML 0 ML ONE (12:41)
--- NOTE | 2020-07-05 12:48 | NUR ---
Per Jet Macias " Okay to give calcium gluconate from 07/04/20 on 07/05/20."
--- NOTE | 2020-07-05 13:27 | Progress Note ---
DATE: 07/05/2020 Nephrology Followup Note. SUBJECTIVE: The patient feels much better since admission. He is drinking fluids as well as receiving IV dextrose water. No vomiting or diarrhea. No mental status changes. OBJECTIVE: VITAL SIGNS: Stable. Intake and output shows 4 L positive in the last 24 hours. Alert and oriented. Blood pressure is 124/70, he is afebrile. NECK: Supple without jugular venous distention. RESPIRATIONS: Bilateral air entry without wheezing. No distress. CARDIOVASCULAR: Regular rate and rhythm. ABDOMEN: Soft and nondistended. EXTREMITIES: Without pitting edema or cyanosis. NEUROLOGICAL: Alert and oriented x3. LABORATORY DATA: Sodium is now improved 164, potassium 3.6, bicarb 22, creatinine down to 1.4, BUN improved to 21, total calcium is 7.4 with albumin of 2.8. Urinalysis from yesterday showed 2+ protein, 6-10 RBCs and 11-20 white cells. Urine sodium 20 while urine osmolalities pending. IMPRESSION: 1. Severe hypernatremia secondary to dehydration. Improving with IV hypertonic fluid as well as p.o. intake. 2. Continue current treatment for now with periodic check of electrolytes and renal function. 3. The patient denies history of diabetes mellitus or hypertension. Currently, on no blood pressure medication. 4. Acute kidney injury secondary to volume depletion, resolving. Continue to monitor daily. Avoid all known nephrotoxins as indicated in original consult yesterday. 5. We will follow along and recommend as needed. Ted Cruz MD SF/MODL /[id number]
[2020-07-05 17:41] VITALS: BP 120/79
--- NOTE | 2020-07-05 19:02 | NUR ---
Report given to oncoming nurse of patient's status. Resting in bed. No s/s of acute distress noted. Side rails upx2, call light within reach, bed alarm on.
[2020-07-05 20:00] VITALS: BP 131/84
--- NOTE | 2020-07-05 21:58 | Progress Note ---
DATE: CONSULTING PHYSICIANS: 1. Dr. Nj Lopez with Cardiology. 2. Dr. Mick Barragan with Pulmonology. 3. Dr. Vimal Alvarez with Nephrology. SUBJECTIVE: The patient has no new complaints. He states he has mild headache for the last 10 years. Last bowel movement was this morning, which was small. OBJECTIVE: VITAL SIGNS: Temperature 98.2, pulse 76, blood pressure 120/79, respirations 20, and oxygen saturation 99% on room air. GENERAL: Awake. No acute distress. Slightly confused. LUNGS: Clear to auscultation. Respiratory pattern even and nonlabored. HEENT: EOMI. Oropharynx clear. NECK: Supple. No lymphadenopathy, thyromegaly, or JVD. CARDIOVASCULAR: Regular rate and rhythm without murmur. D5W IV fluids infusing at 150 mL an hour IV. ABDOMEN: Bowel sounds positive. Soft and nontender. No distention. EXTREMITIES: With no pitting edema. No clubbing, cyanosis, or signs of DVT. NEUROLOGICAL: GCS 15. Nonfocal. LABORATORY DATA: WBC 6.96, hemoglobin 14.3, hematocrit 47.1, and platelets 46. Sodium 164, potassium 3.6, chloride 134, CO2 22, anion gap 11.6, BUN 21, creatinine 1.45, estimated GFR 51, glucose 126, calcium 7.4, phosphorus 3.6, and magnesium 2.7. Total bilirubin 0.5, AST 60, ALT 34, and alkaline phosphatase 72. Total protein 5.4 and albumin 2.8. Yesterday random urine sodium 20, urine osmolalities pending, urine creatinine 225.27. Preliminary urine culture shows no growth after 18 to 24 hours. IMAGING: Renal ultrasound negative. ASSESSMENT AND PLAN: 1. Severe hypernatremia/dehydration. Sodium level 164 (170). Continue IV D5W at 150 mL an hour. 2. Diabetes insipidus, status post DDAVP nasal spray. 3. Acute renal failure, possibly on chronic kidney disease, stage 3. Continue IV fluids. BUN 21, creatinine 1.46, estimated GFR 51, gradually improving. Continue to monitor renal labs. 4. History of intracranial hemorrhage with mild dementia. Supportive care. 5. Rhabdomyolysis. 07/04, creatine kinase 2370. Monitor. Continue IV fluids. 6. Prophylaxis. Pepcid and SCDs. Inpatient, billing code [id number], time spent 35 minutes. Dictated by Jet Macias, CARRY OUT CLERK AND SHELF STOCKER MD KRUPA Sanchez/LUCY /[id number]
[2020-07-06] VITALS (9 sets, daily range): BP systolic 106–124; BP diastolic 66–79
--- NOTE | 2020-07-06 01:35 | NUR ---
Pt. confused, aggitated,says he is going home. He said he has work to do. I explained to him that it was only 01:35 in the morning and that it was dark outside. Pt. aggitated jerking IV fluids from IV pole and pulling at his IV site. When I asked him where he was at he said he didnt know. I explained to him that he was in the hospital. He said he wasnt. He said he needs a ride. I asked him where to he said home. I asked him for his address and he said he didnt remember. He said he moved so many times that he doesnt remember.
--- NOTE | 2020-07-06 01:42 | NUR ---
Alecia LATIF, Charge nurse here and Jayna LATIF,supervisor grain and yeast plants here talking to pt. BHAVYA Dorantes called pt. son .
--- NOTE | 2020-07-06 01:43 | NUR ---
Notified Prince Jet BRANNER MACHINE TENDER, pt. confused,aggitated. He is saying he is going home. Orders received.
[2020-07-06] MEDS ORDERED: HALOPERIDOL LACTATE 5 MG/ML VIAL IV ONE (01:45)
[2020-07-06] MEDS ORDERED: HALOPERIDOL LACTATE 5 MG/ML VIAL ONE (01:52)
--- NOTE | 2020-07-06 02:50 | NUR ---
Pt. son here and in room with pt.
--- NOTE | 2020-07-06 03:30 | NUR ---
Pt. resting quietly. Respirations are even and unlabored. Son at his bedside.
[2020-07-06] MEDS: NICOTINE 21 MG/EA PATCH TOP SCH (08:55)
[2020-07-06] MEDS: DEXTROSE 5% 1,000 ML IV SCH ×4 (08:55→22:00)
[2020-07-06] MEDS: FAMOTIDINE 20 MG/2 ML VIAL IV SCH ×2 (08:55→16:31)
[2020-07-06 10:49] LABS: BASOPHILS % 0.3 % (0.0-1.0); EOSINOPHILS # (AUTO) 0.2 (0.0-0.4); EOSINOPHILS % 2.4 % (0.0-6.0); HEMOGLOBIN 14.8 g/dL (14.0-18.0); LYMPHOCYTES # (AUTO) 1.3 (1.0-3.2); LYMPHOCYTES % 16.8 % (18.0-39.1); MEAN CORPUSCULAR HEMOGLOBIN 31.4 pg (28-32); MEAN CORPUSCULAR HGB CONC 31.5 g/dL (31-35); MEAN CORPUSCULAR VOLUME 99.8 fL (81-99); MONOCYTES # (AUTO) 0.4 (0.2-0.8); MONOCYTES % 4.9 % (4.4-11.3); NEUTROPHILS % 75.3 % (38.7-80.0); RED BLOOD COUNT 4.71 x10e6/uL (4.3-5.7); RED CELL DISTRIBUTION WIDTH 11.6 % (11.7-14.4)
[2020-07-06] MEDS ORDERED: ACETAMINOPHEN/CODEINE 300MG - 30MG TAB PO PRN (11:00)
[2020-07-06] MEDS ORDERED: HYDRALAZINE HCL 20 MG/ML VIAL IV PRN (11:00)
[2020-07-06] MEDS ORDERED: ACETAMINOPHEN 325 MG TAB PO PRN (11:00)
[2020-07-06 11:09] LABS: ALANINE AMINOTRANSFERASE 36 IU/L (0-55); ALBUMIN 2.9 g/dL (3.5-5.0); ALKALINE PHOSPHATASE 71 IU/L (40-150); ANION GAP 13.5 mmol/L (8-16); BLOOD UREA NITROGEN 14 mg/dL (7-26); BUN/CREATININE RATIO 13 (6-25); CALCIUM 7.9 mg/dL (8.4-10.2); CARBON DIOXIDE 18 mmol/L (22-29); CHLORIDE 121 mmol/L (98-107); CREATINE KINASE 1659 IU/L (30-200); CREATININE, SERUM 1.04 mg/dL (0.72-1.25); EST GLOMERULAR FILTRATION RATE > 60 ML/MIN (60-); GLUCOSE 110 mg/dL (74-118); POTASSIUM 4.5 mmol/L (3.5-5.1); SODIUM 148 mmol/L (136-145)
[2020-07-06 11:31] LABS: MAGNESIUM 2.2 MG/DL (1.3-2.1)
[2020-07-06 11:51] LABS: PLATELET ESTIMATE MARKEDLY DECREASED; PLATELET MORPHOLOGY COMMENT RARE EDTA CLUMPING; RBC MORPHOLOGY COMMENT NORMAL
[2020-07-06 11:55] LABS: PLATELET COUNT 39 x10e3/uL (140-360)
[2020-07-06 13:13] LABS: OSMOLALITY,SERUM OSMOMETER 407 mOsmol/kg (275-295)
--- NOTE | 2020-07-06 13:58 | Progress Note ---
DATE: 07/06/2020 Nephrology Followup Note SUBJECTIVE: The patient has no specific complaints today. Continues to feel better. Taking p.o. very well. No nausea, vomiting, or diarrhea. OBJECTIVE: GENERAL: Appears very comfortable. VITAL SIGNS: Stable. Blood pressure is 124/79, pulse 75 per minute, and afebrile. Respirations 16 per minute. Pulse oximetry 98% on room air. NECK: Supple without jugular venous distention. RESPIRATION: Bilateral symmetrical air entry. No distress. No adventitious sounds. CARDIOVASCULAR: Regular rate and rhythm. ABDOMEN: Soft and nondistended. EXTREMITIES: Without pitting edema or cyanosis. NEUROLOGICAL: Alert and oriented x3. LABORATORY DATA: Urine culture is negative. Sodium improved to 148, potassium 4.5, bicarb 18, creatinine 1.04, EGFR greater than 60, and total calcium 7.9. Serum albumin 2.9. Creatine kinase 1659. IMPRESSION: 1. Acute kidney injury secondary to dehydration, resolved with IV and p.o. hydration. 2. Severe hypernatremia secondary to dehydration, nearly corrected. 3. Mild metabolic acidosis, likely related to types of IV fluid given in the hospital. 4. Possible mild rhabdomyolysis, urine negative for blood by dipstick. RECOMMENDATIONS: 1. Continue to keep the patient hydrated. 2. May discharge home from Renal standpoint with followup BMP in 2 to 3 days time as outpatient. 3. His blood pressure remains well controlled without antihypertensives. BP medication may need to be considered as an outpatient if there is a history of essential hypertension. Ted Cruz MD [facility]/MODL /[id number]
--- NOTE | 2020-07-06 16:29 | Progress Note ---
DATE: SUBJECTIVE: The patient is more comfortable. He is not complaining of pain or dyspnea. PHYSICAL EXAMINATION: VITAL SIGNS: Blood pressure is 122/76 and saturation 97%. The pulse is 70. HEENT: Shows no facial swelling or erythema. CARDIAC: Reveals regular rate and rhythm with normal S1 and S2. LUNGS: Auscultation of lungs reveals clear breath sounds bilaterally. There is no wheezing. ABDOMEN: Soft and nontender. There is no rebound or guarding. LABORATORY DATA: White blood cell count is 7.9, hemoglobin is 14.8, and the platelet count is 39. The sodium is 148 and the BUN to creatinine ratio is 14 to 1.04. IMPRESSION: 1. Hypernatremia. 2. Acute kidney injury. 3. Thrombocytopenia. 4. Remote history of brain aneurysm. PLAN: 1. Continue to replace free water and volume as needed. 2. Monitor platelet count closely. 3. Consider Hematology consultation regarding thrombocytopenia. Mick Barragan MD Irais/LUCY /[id number]
--- NOTE | 2020-07-06 20:00 | NUR ---
Received change of shift report from AM nurses. Walking rounds completed.
[2020-07-06 21:58] LABS: CREATINE KINASE MB 1.8 ng/mL (0-5.0)
--- NOTE | 2020-07-07 | NUR ---
Order received for plt to be given. Plt low. Patient t & c and blood sent to lab. Patient with 1:1 sitter. No issues of confusing or forgetfulness noted at this time. Continue monitor.
[2020-07-07 00:16] VITALS: BP 120/75
--- NOTE | 2020-07-07 02:57 | NUR ---
Patient resting quitly at this time.
[2020-07-07 04:00] VITALS: BP 122/69
--- NOTE | 2020-07-07 04:30 | NUR ---
Started PLT as ordered. Patient with no reaction. Vital signs stable. Continue monitor for changes in patient condition.
[2020-07-07] MEDS ORDERED: SODIUM CHLORIDE 0.9% 50ML 50 ML ONE (04:35)
[2020-07-07] MEDS: DEXTROSE 5% 1,000 ML IV SCH ×2 (04:40→10:23)
[2020-07-07 08:15] VITALS: BP 127/79
[2020-07-07] MEDS: NICOTINE 21 MG/EA PATCH TOP SCH (08:27)
[2020-07-07] MEDS: FAMOTIDINE 20 MG/2 ML VIAL IV SCH (08:27)
[2020-07-07 08:57] VITALS: BP 127/79
[2020-07-07 09:44] LABS: BASOPHILS % 0.1 % (0.0-1.0); EOSINOPHILS # (AUTO) 0.3 (0.0-0.4); EOSINOPHILS % 3.5 % (0.0-6.0); HEMATOCRIT 46.1 % (38.2-49.6); HEMOGLOBIN 15.1 g/dL (14.0-18.0); LYMPHOCYTES # (AUTO) 1.3 (1.0-3.2); LYMPHOCYTES % 16.3 % (18.0-39.1); MEAN CORPUSCULAR HEMOGLOBIN 31.4 pg (28-32); MEAN CORPUSCULAR HGB CONC 32.8 g/dL (31-35); MEAN CORPUSCULAR VOLUME 95.8 fL (81-99); MONOCYTES # (AUTO) 0.5 (0.2-0.8); MONOCYTES % 6.9 % (4.4-11.3); NEUTROPHILS # (AUTO) 5.6 (2.1-6.9); NEUTROPHILS % 72.6 % (38.7-80.0); PLATELET COUNT 53 x10e3/uL (140-360); RED BLOOD COUNT 4.81 x10e6/uL (4.3-5.7); RED CELL DISTRIBUTION WIDTH 11.5 % (11.7-14.4)
[2020-07-07 11:12] LABS: ALANINE AMINOTRANSFERASE 37 IU/L (0-55); ALBUMIN 3.1 g/dL (3.5-5.0); ALKALINE PHOSPHATASE 80 IU/L (40-150); ANION GAP 14.3 mmol/L (8-16); BLOOD UREA NITROGEN 14 mg/dL (7-26); BUN/CREATININE RATIO 13 (6-25); CALCIUM 8.2 mg/dL (8.4-10.2); CARBON DIOXIDE 17 mmol/L (22-29); CHLORIDE 117 mmol/L (98-107); CREATININE, SERUM 1.04 mg/dL (0.72-1.25); EST GLOMERULAR FILTRATION RATE > 60 ML/MIN (60-); GLUCOSE 106 mg/dL (74-118); POTASSIUM 4.3 mmol/L (3.5-5.1); SODIUM 144 mmol/L (136-145)
[2020-07-07 12:39] VITALS: BP 134/87
--- NOTE | 2020-07-07 14:45 | NUR ---
IMM letter delivered and explained to pt. He verbalized understanding and states he is ready to go home. Copy given to pt. Signed copy placed in chart.
--- NOTE | 2020-07-07 15:10 | NUR ---
Ok to discharge per Renal Md Dr. Cruz. Margarita REYES notified. and orders entered.
--- NOTE | 2020-07-07 15:24 | Progress Note ---
DATE: 07/07/2020 Nephrology Followup Note SUBJECTIVE: This is a followup for severe hypernatremia and acute kidney injury. The patient has no specific complaints today. He is still receiving IV dextrose water and also taking by mouth normally. Has no new complaints. OBJECTIVE: GENERAL: In no acute distress. VITAL SIGNS: Stable. Blood pressure 134/87, pulse 64 per minute, afebrile. Respirations 17 per minute and oxygen saturation 99% on room air. NECK: Supple without jugular venous distention. RESPIRATORY: Bilateral air entry without adventitious sounds. CARDIOVASCULAR: Regular rate and rhythm. ABDOMEN: Soft and nondistended. EXTREMITIES: Without pitting edema. NEUROLOGICAL: Alert and oriented x3. LABORATORY DATA: Creatinine 1.04 with an EGFR greater than 60. BUN 14, serum bicarb somewhat lower at 17, potassium 4.3, and sodium 144. IMPRESSION: 1. Acute severe hypernatremia secondary to dehydration, has resolved now with IV and p.o. fluids. a. We will discontinue IV dextrose water and let the patient continue to ingest water by mouth. 2. Mild metabolic acidosis, expected to correct on its own. 3. History of hypertension, current blood pressure is acceptable with only p.r.n. IV hydralazine. Continue to monitor. Ted Cruz MD [facility]/MODL /[id number]
[2020-07-07 15:50] VITALS: BP 132/84
--- NOTE | 2020-07-07 17:44 | Progress Note ---
DATE: SUBJECTIVE: The patient feels much better. He is not complaining of fever or headaches. His sodium is improved. PHYSICAL EXAMINATION: VITAL SIGNS: Blood pressure is 132/84, saturation is 99%, and pulse is 75. HEENT: Shows no facial swelling or erythema. CARDIAC: Reveals regular rate and rhythm with normal S1, S2. LUNGS: Auscultation of lungs revealed clear breath sounds bilaterally. There is no wheezing. ABDOMEN: Soft, nontender. There is no rebound or guarding. EXTREMITIES: Shows no leg edema or calf tenderness. LABORATORY DATA: Sodium is 144, carbon dioxide is 17, and the chloride is 117. The BUN to creatinine ratio is normal. IMPRESSION: 1. Hyponatremia. 2. Acute kidney injury. 3. Thrombocytopenia. 4. Remote history of brain aneurysm. PLAN: 1. Consider evaluation for diabetes insipidus. 2. Out of bed as tolerated. 3. Monitor platelet count. Mick Barragan MD [facility]/MODL /[id number]
--- NOTE | 2020-07-07 20:26 | Discharge Summary ---
ADMISSION DIAGNOSES: 1. Severe hypernatremia. 2. Central diabetes insipidus. 3. Acute renal failure versus acute on chronic kidney disease. 4. Hypokalemia. 5. Acute metabolic encephalopathy due to hypernatremia present on admission. 6. History of intracranial hemorrhage. 7. Rhabdo present on admission. DISCHARGE DIAGNOSES: 1. Severe hypernatremia. 2. Central diabetes insipidus. 3. Acute renal failure versus acute on chronic kidney disease. 4. Hypokalemia. 5. Acute metabolic encephalopathy due to hypernatremia present on admission. 6. History of intracranial hemorrhage. 7. Rhabdo present on admission. 8. Thrombocytopenia present on admission, plus rule out urinary tract infection. 9. History of intracranial hemorrhage with clipping of aneurysm, depression, diabetes insipidus with no medicines for over a year. SURGICAL HISTORY: Craniotomy, aneurysm clipped, appendectomy. FAMILY HISTORY: Noncontributory. SOCIAL HISTORY: Noncontributory. HOSPITAL COURSE: A 54-year-old male admits with complaints of lightheadedness and constipation. AMS and slurred speech for 3 days. On admission, chest x-ray was negative. CT of the brain showed no acute abnormality. Renal ultrasound was unremarkable. EKG showed sinus tach at a rate of 114. Echo showed an EF of 61%. The patient's sodium was 185 on admission. The patient was started on IV fluids and Nephrology was consulted. CK on admission was 2266. Urine culture was negative. Creatinine was 2.63. Again IV fluids will help the rhabdo and the kidney injury. TSH was within normal limits and anti-diuretic hormone is pending at discharge. The patient's sodium was slowly trended down per Nephrology with IV fluids. The patient is now tolerating diet, no longer confused and independent. He will follow up with primary care in 1 to 2 weeks and Nephrology in 1 to 2 weeks. He was advised for close followup monitoring of his sodium. He was given no new medications at time of discharge. Dictated by Margarita Coats NP Jersey Loja MD [facility]/MODL /[id number]
== END 2020-07-07 18:00 | disposition home or self-care (01) | DRG 682 ==
LOC: ER 14:30 → ERHOLD 16:30 → ICU 18:38 → MED/SURG 07-04 16:45
PROVIDERS: ADMIT Internal Medicine; ATTEND Internal Medicine
DX: N17.9 Acute kidney failure, unspecified (principal); G93.41 Metabolic encephalopathy; E87.0 Hyperosmolality and hypernatremia; M62.82 Rhabdomyolysis; E87.2 Acidosis; E86.1 Hypovolemia; D75.1 Secondary polycythemia; D69.6 Thrombocytopenia, unspecified; F32.9 Major depressive disorder, single episode, unspecified; F41.9 Anxiety disorder, unspecified; R00.0 Tachycardia, unspecified; Z86.79 Personal history of other diseases of the circulatory system; E86.0 Dehydration; E87.8 Other disorders of electrolyte and fluid balance, not elsewhere classified; I49.8 Other specified cardiac arrhythmias; I69.218 Other symptoms and signs involving cognitive functions following other nontraumatic intracranial hemorrhage; F01.50 Vascular dementia, unspecified severity, without behavioral disturbance, psychotic disturbance, mood disturbance, and anxiety; Z11.59 Encounter for screening for other viral diseases
CPT/HCPCS: 36415; 70450; 74022; 76770; 80048; 80053; 81001; 82550; 82553; 82570; 82947; 82948; 83735; 83880; 83930; 83935; 84100; 84295; 84300; 84443; 84484; 84520; 84588; 85025; 85610; 85730; 86900; 87086; 93005; 93306; 96361; 99284; J0610; J1630; J2405; J3480; J7030; J7050; J7060; J7070; P9034

== ENCOUNTER 2021-04-19 19:23 | Inpatient (IN) | payer MEDICARE ==
[~2021-04-19] VITALS: Ht 160 cm; Wt 82.1 kg
[2021-04-19] MEDS ORDERED: LACTATED RINGER'S 1,000 ML INJ ONE (20:00)
[2021-04-19 20:39] LABS: INR 1.07; PROTHROMBIN TIME 14.1 seconds (11.9-14.5)
[2021-04-19 20:47] LABS: ALBUMIN 4.1 g/dL (3.5-5.0); ANION GAP 22.1 mmol/L (8-16); CALCIUM 8.7 mg/dL (8.4-10.2); CREATININE, SERUM 3.05 mg/dL (0.72-1.25); POTASSIUM 3.1 mmol/L (3.5-5.1)
[2021-04-19 20:50] LABS: BASOPHILS # (AUTO) 0.1 (0.0-0.1); BASOPHILS % 0.4 % (0.0-1.0); EOSINOPHILS # (AUTO) 0.1 (0.0-0.4); EOSINOPHILS % 1.2 % (0.0-6.0); HEMOGLOBIN 19.2 g/dL (14.0-18.0); LYMPHOCYTES # (AUTO) 1.8 (1.0-3.2); LYMPHOCYTES % 14.6 % (18.0-39.1); MEAN CORPUSCULAR HEMOGLOBIN 31.5 pg (28-32); MEAN CORPUSCULAR HGB CONC 29.4 g/dL (31-35); MEAN CORPUSCULAR VOLUME 107.2 fL (81-99); MONOCYTES # (AUTO) 0.7 (0.2-0.8); MONOCYTES % 5.9 % (4.4-11.3); NEUTROPHILS # (AUTO) 9.4 (2.1-6.9); NEUTROPHILS % 77.5 % (38.7-80.0); PLATELET COUNT 89 x10e3/uL (140-360); RED CELL DISTRIBUTION WIDTH 12.5 % (11.7-14.4)
[2021-04-19 20:59] LABS: HEMATOCRIT 65.4 % (38.2-49.6)
[2021-04-19 21:06] LABS: SALICYLATE < 5.0 mg/dL (0-30)
[2021-04-19] MEDS ORDERED: DEXTROSE 5% 1,000 ML IV ONE ×4 (21:15→22:15)
[2021-04-19] MEDS ORDERED: POTASSIUM CHLORIDE 10MEQ/100ML 400 ML IV ONE (21:15)
[2021-04-19 21:32] LABS: AMPHETAMINES SCREEN,URINE NEGATIVE (NEGATIVE); BENZODIAZEPINES SCREEN,URINE NEGATIVE (NEGATIVE); CLARITY,URINE SL CLOUDY (CLEAR); COLOR,URINE AMBER (YELLOW); KETONES,URINE 1+ (NEGATIVE); LEUKOCYTE ESTERASE ,URINE NEGATIVE (NEGATIVE); NITRITE,URINE NEGATIVE (NEGATIVE); PHENCYCLIDINE SCREEN,URINE NEGATIVE (NEGATIVE); PROTEIN,URINE DIPSTICK 2+ (NEGATIVE); URINE UROBILINOGEN 1 mg/dL (0.2 - 1)
[2021-04-19 21:34] LABS: MAGNESIUM 3.5 MG/DL (1.3-2.1)
[2021-04-19 21:44] LABS: AMORPHOUS SEDIMENT,URINE MANY (FEW); BACTERIA,URINE MODERATE /HPF; EPITHELIAL CELLS,URINE MODERATE /LPF; WBC,URINE (MAN) 0-5 /HPF (0-5)
[2021-04-19 21:52] LABS: PHOSPHORUS 3.7 MG/DL (2.3-4.7)
[2021-04-20] MEDS ORDERED: INSULIN REGULAR, HUMAN 100 UNIT/1 ML IV ONE
[2021-04-20 00:13] LABS: ANION GAP 13.8 mmol/L (8-16); CALCIUM 7.3 mg/dL (8.4-10.2); CREATININE, SERUM 2.79 mg/dL (0.72-1.25)
[2021-04-20 00:15] LABS: POTASSIUM 2.8 mmol/L (3.5-5.1)
[2021-04-20] MEDS: IPRATROPIUM BROMIDE 0.02% 2.5 ML NEB NEB SCH ×4 (01:20→20:35)
[2021-04-20 06:14] LABS: BASOPHILS % 0.3 % (0.0-1.0); EOSINOPHILS # (AUTO) 0.3 (0.0-0.4); EOSINOPHILS % 2.5 % (0.0-6.0); HEMATOCRIT 52.3 % (38.2-49.6); LYMPHOCYTES # (AUTO) 1.8 (1.0-3.2); LYMPHOCYTES % 17.3 % (18.0-39.1); MEAN CORPUSCULAR HEMOGLOBIN 30.8 pg (28-32); MEAN CORPUSCULAR HGB CONC 29.3 g/dL (31-35); MEAN CORPUSCULAR VOLUME 105.4 fL (81-99); MONOCYTES # (AUTO) 0.9 (0.2-0.8); MONOCYTES % 9.1 % (4.4-11.3); NEUTROPHILS # (AUTO) 7.3 (2.1-6.9); NEUTROPHILS % 70.4 % (38.7-80.0); PLATELET COUNT 58 x10e3/uL (140-360); RED BLOOD COUNT 4.96 x10e6/uL (4.3-5.7); RED CELL DISTRIBUTION WIDTH 12.4 % (11.7-14.4)
[2021-04-20 06:19] LABS: HEMOGLOBIN 15.3 g/dL (14.0-18.0)
[2021-04-20 06:35] LABS: ANION GAP 12.2 mmol/L (8-16); CALCIUM 7.8 mg/dL (8.4-10.2); CREATININE, SERUM 2.29 mg/dL (0.72-1.25)
[2021-04-20 06:38] LABS: POTASSIUM 2.2 mmol/L (3.5-5.1)
[2021-04-20 06:43] LABS: CREATINE KINASE MB 1.1 ng/mL (0-5.0)
[2021-04-20] MEDS ORDERED: POTASSIUM CHLORIDE 20 MEQ TAB CR PO STA (06:48)
[2021-04-20] MEDS ORDERED: POTASSIUM CHLORIDE 20MEQ/100ML 200 ML IV ONE ×2 (07:00→10:45)
[2021-04-20] MEDS ORDERED: POTASSIUM CHLORIDE 20MEQ/100ML 200 ML ONE (07:15)
[2021-04-20] MEDS ORDERED: POTASSIUM CHLORIDE 20 MEQ TAB CR PO ONE (07:15)
[2021-04-20 12:42] LABS: ANION GAP 11.3 mmol/L (8-16); CALCIUM 7.8 mg/dL (8.4-10.2); CREATININE, SERUM 2.02 mg/dL (0.72-1.25); POTASSIUM 4.3 mmol/L (3.5-5.1)
[2021-04-20] MEDS ORDERED: DEXTROSE 5%/0.225% SOD CHL 1,000 ML IV SCH (14:00)
[2021-04-20] MEDS ORDERED: DEXTROSE 5% 1,000 ML IV ONE (14:30)
[2021-04-20] MEDS ORDERED: DEXTROSE 50% SYRINGE 50 ML IV PRN (14:45)
[2021-04-20 15:36] LABS: FREE T4 (FREE THYROXINE) 0.7 ng/dL (0.8-1.8); THYROID STIMULATING HORMONE 1.222 uIU/mL (0.350-4.940)
[2021-04-20] MEDS: INSULIN LISPRO 100 UNIT/1 ML 3ML VIAL SQ SCH ×2 (16:30→21:00)
[2021-04-20 22:02] LABS: SODIUM,URINE 30 mmol/L
[2021-04-20 22:26] LABS: TOTAL VOLUME, URINE 800 ml/24hr (800-2000)
[2021-04-21] MEDS: IPRATROPIUM BROMIDE 0.02% 2.5 ML NEB NEB SCH ×4 (01:40→19:00)
[2021-04-21 06:24] LABS: ALBUMIN 3.4 g/dL (3.5-5.0); ANION GAP 16.3 mmol/L (8-16); CALCIUM 7.8 mg/dL (8.4-10.2); CREATININE, SERUM 1.73 mg/dL (0.72-1.25); MAGNESIUM 2.9 MG/DL (1.3-2.1); PHOSPHORUS 3.9 MG/DL (2.3-4.7); POTASSIUM 4.3 mmol/L (3.5-5.1)
[2021-04-21] MEDS: INSULIN LISPRO 100 UNIT/1 ML 3ML VIAL SQ SCH ×4 (07:30→17:35)
[2021-04-21] MEDS: DEXTROSE 5% 1,000 ML IV SCH ×2 (10:57→17:22)
[2021-04-21] MEDS ORDERED: LORAZEPAM INJ 2 MG/ML VIAL IV ONE (13:45)
[2021-04-21] MEDS: NICOTINE 21 MG/EA PATCH TOP PRN (14:43)
[2021-04-21] MEDS ORDERED: LORAZEPAM INJ 2 MG/ML VIAL IV PRN (17:30)
[2021-04-22] MEDS: IPRATROPIUM BROMIDE 0.02% 2.5 ML NEB NEB SCH ×4 (01:00→19:00)
[2021-04-22] MEDS: DEXTROSE 5% 1,000 ML IV SCH ×4 (02:39→14:15)
[2021-04-22 06:59] LABS: BASOPHILS % 0.2 % (0.0-1.0); EOSINOPHILS # (AUTO) 0.2 (0.0-0.4); HEMATOCRIT 47.5 % (38.2-49.6); HEMOGLOBIN 14.5 g/dL (14.0-18.0); LYMPHOCYTES % 18.4 % (18.0-39.1); MEAN CORPUSCULAR HEMOGLOBIN 31.1 pg (28-32); MEAN CORPUSCULAR HGB CONC 30.5 g/dL (31-35); MEAN CORPUSCULAR VOLUME 101.9 fL (81-99); MONOCYTES # (AUTO) 0.3 (0.2-0.8); MONOCYTES % 5.5 % (4.4-11.3); NEUTROPHILS % 72.4 % (38.7-80.0); RED BLOOD COUNT 4.66 x10e6/uL (4.3-5.7)
[2021-04-22 07:19] LABS: ALBUMIN 3.2 g/dL (3.5-5.0); ANION GAP 9.4 mmol/L (8-16); CALCIUM 7.4 mg/dL (8.4-10.2); CREATININE, SERUM 1.09 mg/dL (0.72-1.25); PLATELET COUNT 45 x10e3/uL (140-360); POTASSIUM 3.4 mmol/L (3.5-5.1)
[2021-04-22] MEDS: INSULIN LISPRO 100 UNIT/1 ML 3ML VIAL SQ SCH ×3 (07:30→20:31)
[2021-04-22] MEDS ORDERED: POTASSIUM CHLORIDE 20MEQ/100ML 200 ML IV ONE (16:15)
[2021-04-23] MEDS: DEXTROSE 5% 1,000 ML IV SCH ×3 (00:49→17:50)
[2021-04-23] MEDS: IPRATROPIUM BROMIDE 0.02% 2.5 ML NEB NEB SCH ×4 (01:00→19:07)
[2021-04-23] MEDS: INSULIN LISPRO 100 UNIT/1 ML 3ML VIAL SQ SCH ×5 (07:30→20:29)
[2021-04-23 07:37] LABS: BASOPHILS % 0.1 % (0.0-1.0); EOSINOPHILS # (AUTO) 0.2 (0.0-0.4); HEMATOCRIT 46.8 % (38.2-49.6); LYMPHOCYTES % 14.6 % (18.0-39.1); MEAN CORPUSCULAR HGB CONC 32.1 g/dL (31-35); MEAN CORPUSCULAR VOLUME 96.7 fL (81-99); MONOCYTES # (AUTO) 0.4 (0.2-0.8); MONOCYTES % 6.2 % (4.4-11.3); NEUTROPHILS # (AUTO) 5.4 (2.1-6.9); NEUTROPHILS % 75.4 % (38.7-80.0); RED BLOOD COUNT 4.84 x10e6/uL (4.3-5.7); RED CELL DISTRIBUTION WIDTH 11.9 % (11.7-14.4)
[2021-04-23 07:40] LABS: PLATELET COUNT 40 x10e3/uL (140-360)
[2021-04-23 07:51] LABS: ALBUMIN 3.1 g/dL (3.5-5.0); ALBUMIN/GLOBULIN RATIO 0.9 (0.8-2.0); ANION GAP 9.2 mmol/L (8-16); CALCIUM 7.8 mg/dL (8.4-10.2); CREATININE, SERUM 0.91 mg/dL (0.72-1.25); POTASSIUM 4.2 mmol/L (3.5-5.1)
[2021-04-23 17:30] LABS: FREE T4 (FREE THYROXINE) 0.9 ng/dL (0.8-1.8); THYROID STIMULATING HORMONE 1.439 uIU/mL (0.350-4.940)
[2021-04-23 17:48] VITALS: BP 116/73
[2021-04-23 18:17] VITALS: BP 116/72
[2021-04-23 18:22] VITALS: BP 116/72
[2021-04-23 20:00] VITALS: BP 126/94
[2021-04-23 21:00] VITALS: BP 126/94
[2021-04-23] MEDS: NICOTINE 21 MG/EA PATCH TOP PRN (21:19)
[2021-04-24] VITALS (8 sets, daily range): BP systolic 98–126; BP diastolic 69–90
[2021-04-24] MEDS: IPRATROPIUM BROMIDE 0.02% 2.5 ML NEB NEB SCH ×4 (00:15→19:15)
[2021-04-24] MEDS: DEXTROSE 5% 1,000 ML IV SCH ×3 (01:45→17:00)
[2021-04-24 06:59] LABS: BASOPHILS % 0.3 % (0.0-1.0); EOSINOPHILS # (AUTO) 0.3 (0.0-0.4); EOSINOPHILS % 3.8 % (0.0-6.0); HEMATOCRIT 42.6 % (38.2-49.6); HEMOGLOBIN 14.3 g/dL (14.0-18.0); LYMPHOCYTES # (AUTO) 1.2 (1.0-3.2); LYMPHOCYTES % 17.3 % (18.0-39.1); MEAN CORPUSCULAR HGB CONC 33.6 g/dL (31-35); MEAN CORPUSCULAR VOLUME 92.2 fL (81-99); MONOCYTES # (AUTO) 0.4 (0.2-0.8); MONOCYTES % 6.1 % (4.4-11.3); NEUTROPHILS # (AUTO) 4.9 (2.1-6.9); NEUTROPHILS % 71.6 % (38.7-80.0); PLATELET COUNT 53 x10e3/uL (140-360); RED BLOOD COUNT 4.62 x10e6/uL (4.3-5.7); RED CELL DISTRIBUTION WIDTH 11.8 % (11.7-14.4)
[2021-04-24 07:25] LABS: ALBUMIN 2.8 g/dL (3.5-5.0); ALBUMIN/GLOBULIN RATIO 0.8 (0.8-2.0); ANION GAP 11.2 mmol/L (8-16); CALCIUM 7.7 mg/dL (8.4-10.2); CREATININE, SERUM 0.85 mg/dL (0.72-1.25); MAGNESIUM 1.9 MG/DL (1.3-2.1); POTASSIUM 4.2 mmol/L (3.5-5.1)
[2021-04-24] MEDS: INSULIN LISPRO 100 UNIT/1 ML 3ML VIAL SQ SCH ×4 (07:30→21:00)
[2021-04-25] VITALS (7 sets, daily range): BP systolic 105–140; BP diastolic 80–89
[2021-04-25] MEDS: IPRATROPIUM BROMIDE 0.02% 2.5 ML NEB NEB SCH ×4 (01:20→19:35)
[2021-04-25] MEDS: DEXTROSE 5% 1,000 ML IV SCH (03:59)
[2021-04-25 06:36] LABS: BASOPHILS % 0.1 % (0.0-1.0); EOSINOPHILS # (AUTO) 0.2 (0.0-0.4); EOSINOPHILS % 2.6 % (0.0-6.0); HEMATOCRIT 40.5 % (38.2-49.6); HEMOGLOBIN 14.3 g/dL (14.0-18.0); LYMPHOCYTES # (AUTO) 0.9 (1.0-3.2); LYMPHOCYTES % 9.8 % (18.0-39.1); MEAN CORPUSCULAR HEMOGLOBIN 31.3 pg (28-32); MEAN CORPUSCULAR HGB CONC 35.3 g/dL (31-35); MEAN CORPUSCULAR VOLUME 88.6 fL (81-99); MONOCYTES # (AUTO) 0.6 (0.2-0.8); MONOCYTES % 6.4 % (4.4-11.3); NEUTROPHILS # (AUTO) 7.3 (2.1-6.9); NEUTROPHILS % 80.1 % (38.7-80.0); PLATELET COUNT 66 x10e3/uL (140-360); RED BLOOD COUNT 4.57 x10e6/uL (4.3-5.7); RED CELL DISTRIBUTION WIDTH 11.9 % (11.7-14.4)
[2021-04-25 06:48] LABS: INR 0.91; PROTHROMBIN TIME 12.4 seconds (11.9-14.5)
[2021-04-25 06:49] LABS: PARTIAL THROMBOPLASTIN TIME 30.7 seconds (23.8-35.5)
[2021-04-25 06:56] LABS: ALBUMIN/GLOBULIN RATIO 0.9 (0.8-2.0); ANION GAP 12.1 mmol/L (8-16); CREATININE, SERUM 0.81 mg/dL (0.72-1.25); POTASSIUM 4.1 mmol/L (3.5-5.1)
[2021-04-25] MEDS: INSULIN LISPRO 100 UNIT/1 ML 3ML VIAL SQ SCH ×4 (07:30→19:50)
[2021-04-25] MEDS: SODIUM CHLORIDE 0.9% 1000ML 1,000 ML IV SCH ×2 (13:47→23:58)
[2021-04-25] MEDS: SODIUM BICARBONATE 650 MG TAB PO SCH (16:51)
[2021-04-26] VITALS (8 sets, daily range): BP systolic 118–140; BP diastolic 76–86
[2021-04-26] MEDS: SODIUM CHLORIDE 0.9% 1000ML 1,000 ML IV SCH ×2 (00:10→20:30)
[2021-04-26] MEDS: IPRATROPIUM BROMIDE 0.02% 2.5 ML NEB NEB SCH ×4 (01:19→19:35)
[2021-04-26 04:54] LABS: BASOPHILS % 0.1 % (0.0-1.0); EOSINOPHILS # (AUTO) 0.2 (0.0-0.4); EOSINOPHILS % 2.6 % (0.0-6.0); HEMATOCRIT 39.4 % (38.2-49.6); HEMOGLOBIN 13.8 g/dL (14.0-18.0); LYMPHOCYTES # (AUTO) 1.3 (1.0-3.2); LYMPHOCYTES % 16.3 % (18.0-39.1); MEAN CORPUSCULAR HEMOGLOBIN 30.7 pg (28-32); MEAN CORPUSCULAR VOLUME 87.8 fL (81-99); MONOCYTES # (AUTO) 0.6 (0.2-0.8); MONOCYTES % 7.8 % (4.4-11.3); NEUTROPHILS # (AUTO) 5.6 (2.1-6.9); NEUTROPHILS % 71.9 % (38.7-80.0); PLATELET COUNT 75 x10e3/uL (140-360); RED BLOOD COUNT 4.49 x10e6/uL (4.3-5.7); RED CELL DISTRIBUTION WIDTH 11.9 % (11.7-14.4)
[2021-04-26 05:21] LABS: ALBUMIN 2.8 g/dL (3.5-5.0); ALBUMIN/GLOBULIN RATIO 0.8 (0.8-2.0); ANION GAP 10.6 mmol/L (8-16); CALCIUM 7.8 mg/dL (8.4-10.2); CREATININE, SERUM 0.72 mg/dL (0.72-1.25); POTASSIUM 3.6 mmol/L (3.5-5.1)
[2021-04-26] MEDS: INSULIN LISPRO 100 UNIT/1 ML 3ML VIAL SQ SCH ×4 (07:30→21:00)
[2021-04-26] MEDS: PANTOPRAZOLE SOD 40 MG TABEC PO SCH (08:42)
[2021-04-26] MEDS: SODIUM BICARBONATE 650 MG TAB PO SCH ×2 (08:42→17:03)
[2021-04-26] MEDS ORDERED: ONDANSETRON HCL INJ 2MG/ML 2ML 2 MG/ML VIAL IV PRN (10:30)
[2021-04-26] MEDS ORDERED: IOPAMIDOL 370 MG/ML 200 ML INFUS..BTL INJ ONE (10:38)
[2021-04-26] MEDS ORDERED: SODIUM CHLORIDE 0.9% 50ML 50 ML ONE (10:38)
[2021-04-26] MEDS: MORPHINE SULFATE INJ 2 MG/ML SYR IV PRN ×2 (11:04→15:01)
[2021-04-27] VITALS (8 sets, daily range): BP systolic 119–137; BP diastolic 74–90
[2021-04-27] MEDS: IPRATROPIUM BROMIDE 0.02% 2.5 ML NEB NEB SCH ×5 (01:37→19:30)
[2021-04-27] MEDS: SODIUM CHLORIDE 0.9% 1000ML 1,000 ML IV SCH ×2 (05:21→17:07)
[2021-04-27] MEDS: INSULIN LISPRO 100 UNIT/1 ML 3ML VIAL SQ SCH ×4 (07:30→21:00)
[2021-04-27] MEDS: SODIUM BICARBONATE 650 MG TAB PO SCH ×2 (09:34→17:08)
[2021-04-27] MEDS: PANTOPRAZOLE SOD 40 MG TABEC PO SCH (09:34)
[2021-04-28] VITALS: BP 128/74
[2021-04-28] MEDS: SODIUM CHLORIDE 0.9% 1000ML 1,000 ML IV SCH ×2 (00:10→11:30)
[2021-04-28 04:00] VITALS: BP 136/89
[2021-04-28] MEDS: IPRATROPIUM BROMIDE 0.02% 2.5 ML NEB NEB SCH ×2 (07:15→13:35)
[2021-04-28] MEDS: INSULIN LISPRO 100 UNIT/1 ML 3ML VIAL SQ SCH ×3 (07:30→16:30)
[2021-04-28 08:15] VITALS: BP 134/83
[2021-04-28 09:00] LABS: ANION GAP 13.3 mmol/L (8-16); CALCIUM 8.2 mg/dL (8.4-10.2); CREATININE, SERUM 0.73 mg/dL (0.72-1.25); POTASSIUM 4.3 mmol/L (3.5-5.1)
[2021-04-28 09:16] VITALS: BP 134/83
[2021-04-28] MEDS: SODIUM BICARBONATE 650 MG TAB PO SCH ×2 (09:58→17:00)
[2021-04-28] MEDS: PANTOPRAZOLE SOD 40 MG TABEC PO SCH (09:58)
[2021-04-28 12:23] VITALS: BP 137/82
[2021-04-28 16:45] VITALS: BP 129/84
[2021-04-28] MEDS ORDERED: PANTOPRAZOLE SO40 MG PO (17:49)
== END 2021-04-28 18:22 | disposition home or self-care (01) | DRG 640 ==
LOC: ER 19:55 → ERHOLD 21:21 → MED/SURG2 04-23 16:50
PROVIDERS: ADMIT Family Medicine; ATTEND Family Medicine
DX: E87.0 Hyperosmolality and hypernatremia (principal); N17.0 Acute kidney failure with tubular necrosis; J96.01 Acute respiratory failure with hypoxia; K92.2 Gastrointestinal hemorrhage, unspecified; E87.2 Acidosis; E87.1 Hypo-osmolality and hyponatremia; F03.90 Unspecified dementia, unspecified severity, without behavioral disturbance, psychotic disturbance, mood disturbance, and anxiety; Z86.79 Personal history of other diseases of the circulatory system; K74.60 Unspecified cirrhosis of liver; D69.59 Other secondary thrombocytopenia; Z20.822 Contact with and (suspected) exposure to COVID-19; E87.8 Other disorders of electrolyte and fluid balance, not elsewhere classified; R73.9 Hyperglycemia, unspecified; E87.6 Hypokalemia; E86.0 Dehydration; K76.0 Fatty (change of) liver, not elsewhere classified; I25.10 Atherosclerotic heart disease of native coronary artery without angina pectoris; Z95.1 Presence of aortocoronary bypass graft; J44.9 Chronic obstructive pulmonary disease, unspecified; Z74.01 Bed confinement status
CPT/HCPCS: 36415; 51700; 70450; 71045; 74176; 76770; 80048; 80053; 80307; 80329; 81001; 81050; 82088; 82550; 82553; 82948; 83036; 83735; 84100; 84300; 84439; 84443; 84481; 84484; 85025; 85610; 85730; 86376; 93005; 94640; 99285; J2060; J2270; J3480; J7030; J7070; J7121; Q9967; U0002